=== PATIENT | male | born 1965 | race Caucasian/White ===

== ENCOUNTER 2019-05-28 06:00 | Outpatient (RCR) | payer MEDICAID, SELFPAY | END 2019-06-14 23:00 | disposition home or self-care (01) | LOC: SPT 06:00 | PROVIDERS: Family Provider Nurse Practitioner Family; Visit Provider Specialist | DX: G89.29 Other chronic pain (principal); M54.2 Cervicalgia | CPT/HCPCS: 97110 ×3; 97140 ×2; 97530 ==

== ENCOUNTER → 2019-08-15 12:41 | Outpatient (BNVA) | payer MEDICAID, SELFPAY | PROVIDERS: Family Provider Nurse Practitioner Family; PCP Nurse Practitioner Family; Visit Provider Specialist | DX: G43.711 Chronic migraine without aura, intractable, with status migrainosus (principal); F17.210 Nicotine dependence, cigarettes, uncomplicated | CPT/HCPCS: 99213 ==

== ENCOUNTER → 2019-12-18 07:54 | Outpatient (BNVA) | payer MEDICAID, SELFPAY | PROVIDERS: Family Provider Nurse Practitioner Family; PCP Nurse Practitioner Family; Visit Provider Specialist | DX: G43.711 Chronic migraine without aura, intractable, with status migrainosus (principal) | CPT/HCPCS: 99213 ==

== ENCOUNTER → 2019-12-20 12:42 | Outpatient (BNVA) | payer MEDICAID, SELFPAY | PROVIDERS: Family Provider Nurse Practitioner Family; PCP Nurse Practitioner Family; Visit Provider Specialist | DX: G43.711 Chronic migraine without aura, intractable, with status migrainosus (principal) | CPT/HCPCS: 96372 ==

== ENCOUNTER 2019-12-28 09:15 | Outpatient (CLI) | payer MEDICAID, SELFPAY ==
--- NOTE | 2019-12-28 09:30 | MR_ITS ---
WS: [id number] MRI CERVICAL SPINE NONCONTRAST TECHNIQUE: Sagittal T1, T2 and STIR imaging. Axial T2, gradient, and fiesta imaging. CLINICAL INFORMATION: neck pain COMPARISON: FINDINGS: Slight exaggeration normal cervical lordosis. Cord signal is normal. No high-grade central canal narr owing. Mild disc bulging worse at C5-6. C2-C3: Normal. C3-C4: Tiny central protrusion. Spinal canal and foramen are patent. Mild facet arthropathy. C4-C5: Minimal disc bulging with a tiny shallow central protrusion. Mild facet arthropathy. Spinal ca nal and foramen are patent. C5-C6: Shallow central disc protrusion with slight contact of the cervical cord. Mild central canal s tenosis. Mild left and no significant right foraminal narrowing. Mild facet arthropathy. C6-C7: Minimal disc bulging with osteophytic ridging. Mild left and no significant right foraminal na rrowing. Spinal canal is patent. C7-T1: Normal Visualized brain stem structures: Normal. Prevertebral soft tissues: Normal. MR/MR cervical spin wo con* [id number] IMPRESSION: 1. Slight exaggeration normal cervical lordosis. Cord signal is normal. 2. Central disc protrusion C5-C6 with contact of the cervical cord and mild ce ntral canal stenosis. This is slightly progressed since 2008. Mild left foramin al narrowing at this level. 3. Mild left C6-C7 bony foraminal narrowing. 4. No other significant changes from previous.
== END 2019-12-28 09:16 | disposition home or self-care (01) ==
LOC: RADSHAW 09:20
PROVIDERS: PCP Nurse Practitioner Family; Visit Provider Specialist
DX: M50.222 Other cervical disc displacement at C5-C6 level (principal)
CPT/HCPCS: 72141

== ENCOUNTER → 2020-01-15 12:23 | Outpatient (BNVA) | payer MEDICAID, SELFPAY | PROVIDERS: PCP Nurse Practitioner Family; Visit Provider Specialist | DX: G43.711 Chronic migraine without aura, intractable, with status migrainosus (principal) | CPT/HCPCS: 96372 ==

== ENCOUNTER → 2020-02-01 14:12 | Outpatient (BNVA) | payer MEDICAID, SELFPAY | PROVIDERS: Family Provider Nurse Practitioner Family; PCP Nurse Practitioner Family; Visit Provider Specialist | DX: G43.709 Chronic migraine without aura, not intractable, without status migrainosus (principal); M54.2 Cervicalgia | CPT/HCPCS: 99214 ==

== ENCOUNTER → 2020-02-12 14:12 | Outpatient (BNVA) | payer MEDICAID, SELFPAY | PROVIDERS: Family Provider Nurse Practitioner Family; PCP Nurse Practitioner Family; Visit Provider Specialist | DX: G43.711 Chronic migraine without aura, intractable, with status migrainosus (principal) | CPT/HCPCS: 96372 ==

== ENCOUNTER → 2020-07-31 08:41 | Outpatient (BNVA) | payer MEDICAID, SELFPAY | PROVIDERS: Family Provider Nurse Practitioner Family; PCP Nurse Practitioner Family; Visit Provider Specialist | DX: G43.711 Chronic migraine without aura, intractable, with status migrainosus (principal); I73.00 Raynaud's syndrome without gangrene; R71.8 Other abnormality of red blood cells; F17.210 Nicotine dependence, cigarettes, uncomplicated | CPT/HCPCS: 99214 ==

== ENCOUNTER → 2020-10-31 08:21 | Outpatient (BNVA) | payer MEDICAID, SELFPAY | PROVIDERS: Family Provider Nurse Practitioner Family; PCP Nurse Practitioner Family; Visit Provider Specialist | DX: G43.711 Chronic migraine without aura, intractable, with status migrainosus (principal); M54.2 Cervicalgia; I73.00 Raynaud's syndrome without gangrene; F17.210 Nicotine dependence, cigarettes, uncomplicated | CPT/HCPCS: 99214 ==

== ENCOUNTER → 2021-01-27 08:22 | Outpatient (BNVA) | payer MEDICAID, SELFPAY | PROVIDERS: Family Provider Nurse Practitioner Family; PCP Nurse Practitioner Family; Visit Provider Specialist | DX: G43.711 Chronic migraine without aura, intractable, with status migrainosus (principal); M54.2 Cervicalgia; I73.00 Raynaud's syndrome without gangrene; F17.210 Nicotine dependence, cigarettes, uncomplicated | CPT/HCPCS: 99214 ==

== ENCOUNTER → 2022-02-24 09:47 | Outpatient (BNVA) | payer MEDICAID, SELFPAY | PROVIDERS: Family Provider Nurse Practitioner Family; PCP Nurse Practitioner Family; Visit Provider Specialist | DX: G43.711 Chronic migraine without aura, intractable, with status migrainosus | CPT/HCPCS: G0463 ==

== ENCOUNTER → 2022-06-11 07:52 | Outpatient (BNVA) | payer MEDICAID, SELFPAY | PROVIDERS: Family Provider Nurse Practitioner Family; PCP Family Medicine; Visit Provider Family Medicine | DX: R35.0 Frequency of micturition (principal); Z12.5 Encounter for screening for malignant neoplasm of prostate; Z00.00 Encounter for general adult medical examination without abnormal findings; Z13.220 Encounter for screening for lipoid disorders; Z51.81 Encounter for therapeutic drug level monitoring; R07.9 Chest pain, unspecified | CPT/HCPCS: 80053; 80061; 84153; 85025; 86141 ==

== ENCOUNTER 2023-02-04 09:25 | Outpatient (CLI) | payer MEDICAID, SELFPAY ==
--- NOTE | 2023-02-04 09:32 | XR_ITS ---
WS: [id number] XR chest 2V* [id number] REASON FOR EXAM: Cough FINDINGS: The heart and the mediastinum are within normal limits. Minimal calcified granulomatous disease bilaterally. No focal or diffuse pulmonary parenchymal or pleural abnormality is identified. Bony thorax is intact without significant focal abnormality. IMPRESSION: No significant chest abnormality.
== END 2023-02-04 09:26 | disposition home or self-care (01) ==
PROVIDERS: PCP Family Medicine; Visit Provider Family Medicine
DX: R05.9 Cough, unspecified (principal); R63.4 Abnormal weight loss; Z51.81 Encounter for therapeutic drug level monitoring; R53.81 Other malaise; R53.83 Other fatigue; Z12.5 Encounter for screening for malignant neoplasm of prostate
CPT/HCPCS: 71046; 80053; 84153; 84439; 84443; 85025; 86141

== ENCOUNTER → 2023-02-18 08:29 | Outpatient (BNVA) | payer MEDICAID, SELFPAY | PROVIDERS: PCP Family Medicine; Referring Provider Family Medicine; Visit Provider Surgery | DX: K21.9 Gastro-esophageal reflux disease without esophagitis (principal); R14.0 Abdominal distension (gaseous); R10.13 Epigastric pain | CPT/HCPCS: 99203 ==

== ENCOUNTER 2023-03-05 06:54 | Outpatient (CLI) | payer OTHER, MEDICAID, SELFPAY ==
--- NOTE | 2023-03-05 07:15 | US_ITS ---
WS: [id number] RIGHT UPPER QUADRANT ULTRASOUND HISTORY: Epigastric pain COMPARISON: None available. Liver: 15.6 cm in length. Normal size liver and echogenicity. No bile duct dilatation or mass. Portal Vein: Normal hepatopetal flow with monophasic waveform. Gallbladder: Normally distended gallbladder with no stones or wall thickening. CBD: 0.2 cm Pancreas: Normal size and echogenicity. Right kidney: 11.4 cm in length. Normal size and echogenicity. No hydronephrosis or mass. Aorta and IVC: Unremarkable abdominal aorta and IVC. No ascites. IMPRESSION: Normal RIGHT upper quadrant ultrasound.
== END 2023-03-05 06:55 | disposition home or self-care (01) ==
PROVIDERS: PCP Family Medicine; Visit Provider Surgery
DX: R10.13 Epigastric pain
CPT/HCPCS: 76705

== ENCOUNTER 2023-03-31 09:37 | Outpatient (CLI) | payer OTHER, MEDICAID, SELFPAY ==
--- NOTE | 2023-03-31 10:00 | NM_ITS ---
WS: [id number] NUCLEAR MEDICINE HIDA SCAN CLINICAL INFORMATION: epigastric pain TECHNIQUE: Following intravenous administration of 7.4 mCi of technetium 99m mebrofenin, images of th e abdomen were obtained over the course of 60 minutes. Next, gallbladder ejection fraction was determ ined by obtaining preprandial and one-hour postprandial images of the gallbladder following oral peter stion of Ensure. COMPARISON: Ultrasound gallbladder 03/05/2023 FINDINGS: Hepatomegaly. Normal hepatic uptake and excretion. Normal common bile duct and small bowel activity. Gallbladder is visualized by 10 minutes. No evidence of acute cholecystitis. Gallbladder ejection fraction 80%. No evidence of chronic cholecystitis. IMPRESSION: 1. No evidence of acute or chronic cholecystitis. 2. Gallbladder ejection fraction 80% within normal limits.
== END 2023-03-31 09:38 | disposition home or self-care (01) ==
LOC: RAD 09:38
PROVIDERS: PCP Family Medicine; Visit Provider Surgery
DX: R10.13 Epigastric pain (principal)
CPT/HCPCS: 78227; A9537

== ENCOUNTER 2023-05-11 06:50 | Outpatient (CLI) | payer OTHER, MEDICAID, SELFPAY ==
--- NOTE | 2023-05-11 08:00 | CT_ITS ---
WS: [id number] CT ABDOMEN PELVIS TECHNIQUE: Contrast-enhanced CT of the abdomen and pelvis with coronal and sagittal reformatted image s. CLINICAL INFORMATION: Epigastric pain, weight loss COMPARISON: None. DLP: 320.[address] scans at [facility] use at least one of these dose optimization techniques: automated e xposure control; mA and/or kV adjustment per patient size (includes targeted exams where dose is matc hed to clinical indication); or iterative reconstruction. FINDINGS: Lung bases are well aerated. Distended enlarged stomach with air-fluid levels with contrast and food products. Recommend correlation for gastroparesis. This could be further evaluated with endoscopy. No rmal GE junction. Mild diffuse fatty infiltration of the liver. Gallbladder is contracted. Normal spl een. Adrenal glands are normal. Normal renal parenchymal enhancement. No hydronephrosis. Urine disten ded bladder. Heterogeneous enlarged nodular prostate with indentation on the bladder. Recommend correlation PSA. P rostate measures 5.8 cm in maximum dimension. Cystic change in the LEFT aspect of the prostate. Recom mend correlation with history of prostatitis. Sigmoid diverticulosis. No evidence of acute diverticul itis. Transverse colon and RIGHT colon constipation. Normal portal vein and splenic vein. Normal panc reas. Normal caliber abdominal aorta. Tiny fat-containing umbilical hernia. IMPRESSION: 1. Marked distention of the stomach with air-fluid levels. Recommend correlation for gastroparesis. This can be followed up with endoscopy. 2. Diffuse fatty filtration of the liver. 3. Sigmoid diverticulosis. Enlarged heterogeneous enhancing nodular prostate measuring 5.8 cm. Recom mend correlation PSA. Evidence of bladder outlet obstruction. Cystic change of the LEFT aspect of the prostate. Recommend correlation for prostatitis. 4. No other acute findings.
[2023-05-11] MEDS: iohexol 350 mg/mL 500 mL Btl (per mL) PO (08:01)
[2023-05-11] MEDS: iohexol 350 mg/mL 500 mL Btl (per mL) IV (08:11)
== END 2023-05-11 06:51 | disposition home or self-care (01) ==
LOC: RAD 06:50
PROVIDERS: PCP Family Medicine; Visit Provider Family Medicine
DX: R10.13 Epigastric pain (principal); R63.4 Abnormal weight loss; K31.89 Other diseases of stomach and duodenum; K76.0 Fatty (change of) liver, not elsewhere classified; K57.30 Diverticulosis of large intestine without perforation or abscess without bleeding; N40.0 Benign prostatic hyperplasia without lower urinary tract symptoms; N32.0 Bladder-neck obstruction
CPT/HCPCS: 74177; Q9967

== ENCOUNTER 2023-08-31 11:59 | Outpatient (CLI) | payer OTHER, MEDICAID, SELFPAY ==
--- NOTE | 2023-08-31 12:02 | XRR_ITS ---
PROCEDURE INFORMATION: Exam: XR Left Shoulder Exam date and time: 08/31/2023 12:21 PM Age: 57 years old Clinical indication: Pain; Shoulder; Bilateral; Additional info: Left shoulder pain TECHNIQUE: Imaging protocol: Radiologic exam of the left shoulder. Views: 2 or more views. COMPARISON: CR XR chest 2V* [id number] 02/04/2023 9:42 AM FINDINGS: Bones/joints: No acute fracture or dislocation of the shoulder. Joint spaces are preserved. Age-indeterminate nondisplaced fractures of the left posterior 7th and 8th ribs. Soft tissues: Normal. XR/XR shoulder LT min 2V* [id number] IMPRESSION: 1. No acute fracture or dislocation of the shoulder. 2. Age-indeterminate nondisplaced left posterior 7th and 8th rib fractures.
--- NOTE | 2023-08-31 12:02 | XRR_ITS ---
PROCEDURE INFORMATION: Exam: XR Right Shoulder Exam date and time: 08/31/2023 12:21 PM Age: 57 years old Clinical indication: Pain; Shoulder; Bilateral; Additional info: Right shoulder pain TECHNIQUE: Imaging protocol: Radiologic exam of the right shoulder. Views: 2 or more views. COMPARISON: CR XR chest 2V* [id number] 02/04/2023 9:42 AM FINDINGS: Bones/joints: No acute fracture or dislocation. Joint spaces are preserved. Soft tissues: Normal. XR/XR shoulder RT min 2V* [id number] IMPRESSION: No acute fracture or dislocation.
== END 2023-08-31 12:00 | disposition home or self-care (01) ==
LOC: RAD 11:59
PROVIDERS: PCP Family Medicine; Visit Provider Family Medicine
DX: M25.512 Pain in left shoulder (principal); M25.511 Pain in right shoulder; S22.42XA Multiple fractures of ribs, left side, initial encounter for closed fracture; X58.XXXA Exposure to other specified factors, initial encounter
CPT/HCPCS: 73030

== ENCOUNTER 2023-09-30 13:34 | Outpatient (CLI) | payer OTHER, SELFPAY ==
--- NOTE | 2023-09-30 13:45 | MR_ITS ---
WS: [id number] MRI RIGHT SHOULDER HISTORY: Shoulder pain COMPARISON: RIGHT shoulder radiographs 08/31/2023 TECHNIQUE: Multiplanar sequences of the shoulder joint are submitted. Moderate AC joint hypertrophy. Distal clavicular osteophyte encroaches and deforms the supraspinatus tendon at the level of the glenoid. There is marked narrowing of the AC joint and hypertrophic bone a nd soft tissue formation. No significant subacromial impingement. No os acromion. Normal position of the biceps tendon. Very small amount of fluid in the subacromial and subdeltoid bursa. Normal position of the humeral head with respect to the glenoid. No atrophy of the rotator cuff muscl es. No edema. No tendon tears. No labral tear. IMPRESSION: 1. Moderate AC joint hypertrophy with osteophyte encroachment upon the myotendinous portion of the s upraspinatus. 2. No rotator cuff tendon tear. 3. No muscle atrophy or edema. 4. Mild fluid distention of the subacromial and subdeltoid bursa.
== END 2023-09-30 13:35 | disposition home or self-care (01) ==
LOC: RAD 13:35
PROVIDERS: PCP Family Medicine; Visit Provider Family Medicine
DX: M25.511 Pain in right shoulder (principal); M25.711 Osteophyte, right shoulder
CPT/HCPCS: 73221

== ENCOUNTER → 2024-02-15 12:05 | Outpatient (BNVA) | payer OTHER, MEDICAID, SELFPAY | PROVIDERS: PCP Family Medicine; Visit Provider Family Medicine | DX: Z51.81 Encounter for therapeutic drug level monitoring (principal); R35.0 Frequency of micturition; R53.81 Other malaise; R53.83 Other fatigue | CPT/HCPCS: 80053; 81000; 83036; 84153; 85025; 86141; 87086 ==

== ENCOUNTER → 2025-01-11 07:05 | Outpatient (BNVA) | payer OTHER, MEDICAID, SELFPAY | PROVIDERS: PCP Family Medicine; Visit Provider Family Medicine | DX: Z00.00 Encounter for general adult medical examination without abnormal findings (principal); E53.8 Deficiency of other specified B group vitamins; R39.11 Hesitancy of micturition; Z13.6 Encounter for screening for cardiovascular disorders; Z51.81 Encounter for therapeutic drug level monitoring; E55.9 Vitamin D deficiency, unspecified | CPT/HCPCS: 80053; 80061; 82306; 82607; 84153; 85025 ==